=== PATIENT | male | born 1955 | race Caucasian/White ===

== ENCOUNTER 2016-10-01 15:27 | Outpatient (CLI) | payer OTHER ==
[~2016-10-01] VITALS: Ht 172.7 cm; Wt 68.6 kg
[2016-10-01 15:50] VITALS: Ht 172.7 cm; Wt 68.6 kg
[2016-10-01] MEDS ORDERED: OXYC-279 PO (15:50)
[2016-10-01] MEDS ORDERED: SENN-53 PO (15:50)
[2016-10-01] MEDS ORDERED: WARF1TAB47 PO (15:50)
[2016-10-01 15:51] VITALS: BP 118/70; PULSE 132; RESP 18
--- NOTE | 2016-10-01 16:13 | PN ---
Date/Time of Note Date/Time of Note DATE: 10/01/16 TIME: 16:05 Outpatient Progress Note Chief Complaint Urosepsis/anemia/cancer of the bladder/urinary diversion/left leg phlebitis/ HPI Urosepsis/no fever or chills, no back pain, patient still on antibiotic, Anemia/no hematemesis of melena, Cancer of the bladder/patient has a cancer of the bladder, no suprapubic discomfort or distention, Urinary diversion/patient has urinary diversion, no blood in the urine, Left leg phlebitis/patient has left leg phlebitis, patient on Coumadin, Review of Systems Const: [No Fever, no chills, no Wt. loss, no Fatigue, normal appetite, no diaphoresis.] Eyes: [No pain, no discharge, no redness, no visual change, no foreign body.] ENT: [No pain, no bleeding, no congestion, no sore throat, no dysphagia, no discharge or rhinitis.] Lymph: [No adenopathy, no tender nodes, no lymphedema.] Resp: [No SOB, no cough, no sputum, no wheezing, no chest pain.] CV: [No chest pain, no palpitaions, no VALLE, no PND, no edema.] GI: [Normal appetite, no pain, no nausea, no vomiting, no diarrhea, no blood, no constipation.] : [No frequency, no urgency, no dysuria, no hematuria, no flank pain, no discharge, no bleeding patient has urinary diversion,.] Musc: [No bone/joint pain, no back pain, no neck pain, no knee pain, no restricted ROM.] Skin: [No rash, no skin lesions, no erythema, no laceration, no bruising, no pruritus.] Neuro: [No JAQUEZ, no dizziness, no syncope, no seizure, no focal-weakness.] Endo: [No polyuria, no polydypsia, no dry-skin, no temp-intolerance.] Psych: [No hallucinations, no depression, no anxiety, no suicidal ideation.] Ext: [No edema, no pain, no ulcer, no weakness left leg phlebitis, minimal discomfort,.] Physical Exam Vital Signs Date Time Temp Pulse Resp B/P Pulse Ox O2 Delivery O2 Flow Rate FiO2 10/01/16 15:51 99.8 132 18 118/70 96 Room Air General Appearance: A [61 year-old [male [who appears well-developed, well- nourished, in no acute distress.] HEENT: [Head normocephalic, atraumatic. Pupils equal, round, reactive to light and accommodate. Sclerae are no jaundice. Nasal turbinates pink without erythema or nasal discharge. Mucous membranes pink and moist without lesions. Oropharynx clear without any exudate or discharge.] NECK: [Supple. Trachea midline, No thyromegaly, No cervical lymphadenopathy, No mass, No carotid bruits, No JVD, Carotid pulses 2+ bilaterally.] PULMONARY: [Clear to auscultaion bilaterally, No retractions, Chest expansion symmetric bilaterally, no rales, no ronchi, no dulness on percussion.] CARDIAC: [Normal SI and S2, Regular rate and rythm, no murmur, gallop, or rub.] GASTROINTESTINAL: [Abdomen is soft, non-tender, Non Rigid, No distention, Positive bowel sounds x4 quadrants, Liver normal.] SKIN: [Warm, dry, no rash, no bruise, no echmosis.] EXTREMITIES: [Bilateral lower extremities normal, no edema, pulse palpable, no contracture left leg phlebitis,.] MUSCULOSKELETAL: [Spine Normal, Non-tender, Normal range of motion, No swelling , no deformity, no clubbing, or cyanosis, the patient has no edema to bilateral lower extremities, dorsalis pedis pulses palpable bilaterally.] NEUROLOGIC: [The patient is awake, alert, oriented, responding to yes/no questions appropriately, moving all extremities, cranial nerve intact, normal strenght, normal power, normal coordination, normal gait.] Allergies Coded Allergies: No Known Drug Allergies (Verified Allergy, Unknown, 10/01/16) PMH Alcohol abuse/smoking tobacco/urosepsis/anemia/atherosclerosis of aorta/cancer immunotherapy/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/radical cystectomy/uterine diversion/chronic pain/malnutrition/ Social Hx Patient does smoke and drinks, Family Hx Noncontributory Assessment/Plan Impression Urosepsis/anemia/cancer of the bladder/urinary diversion/left leg phlebitis Plan Patient education done, patient is low-grade fever, patient still on antibiotic, CBC CMP, PT/INR after the patient finishes antibiotic, Patient to follow with the primary care physician, If any question to call us or call primary care physician, discussed with the family, if any fever to call us immediately Patient has all the medication, Medications Home Meds Reported Medications Warfarin Sodium* (Coumadin*) 1 Mg Tablet, 1 MG PO DAILY, TAB 10/01/16 Sennosides* (Senna Lax*) 8.6 Mg Tablet, 1 TAB PO DAILY, TAB 10/01/16 Oxycodone HCl/Acetaminophen (Percocet 5-325 mg Tablet) 1 Each Tablet, 1 EACH PO Q6 Y for PAIN LEVEL 6-10, TAB 10/01/16 SHEYLA SCHWAB MD Oct 01, 2016 16:12
== END 2016-10-01 16:30 | disposition home or self-care (01) ==
LOC: DCC 15:27
PROVIDERS: ATTEND Internal Medicine
DX: A41.9 Sepsis, unspecified organism (principal); D64.9 Anemia, unspecified; C67.9 Malignant neoplasm of bladder, unspecified; I80.9 Phlebitis and thrombophlebitis of unspecified site

== ENCOUNTER 2016-10-16 14:06 | Outpatient (CLI) | payer OTHER ==
[~2016-10-16] VITALS: Ht 172.7 cm; Wt 65.7 kg
[~2016-10-16 14:06] MED LIST: OXYC-279 PO; SENN-53 PO; WARF1TAB47 PO
[2016-10-16 14:13] VITALS: BP 105/62; PULSE 134; RESP 18; Ht 172.7 cm; Wt 65.7 kg
[2016-10-16 14:18] VITALS: PULSE 124
--- NOTE | 2016-10-16 14:37 | PN ---
Date/Time of Note Date/Time of Note DATE: 10/16/16 TIME: 14:32 Outpatient Progress Note Chief Complaint Urosepsis/anemia/Ca bladder/sinus tachycardia/urinary divergence/left leg phlebitis HPI Urosepsis/low-grade fevers and patient had chill, patient was recently hospitalized, patient feeling fine at present, no cloudy urine, no blood in the urine, Anemia/no ecchymosis or bruises or bleeding, no ecchymosis, no fatigue, CA bladder/patient has severe bladder, has recent surgery, no blood in the urine , recovering well, Sinus tachycardia/patient has sinus tachycardia, no chest pain or palpitations or syncope, Urinary diversion/patient has urinary diversion, no blood in the urine, Left leg phlebitis/patient has left leg phlebitis, patient on Coumadin, Review of Systems Const: [No Fever, no chills, no Wt. loss, no Fatigue, normal appetite, no diaphoresis.] Eyes: [No pain, no discharge, no redness, no visual change, no foreign body.] ENT: [No pain, no bleeding, no congestion, no sore throat, no dysphagia, no discharge or rhinitis.] Lymph: [No adenopathy, no tender nodes, no lymphedema.] Resp: [No SOB, no cough, no sputum, no wheezing, no chest pain.] CV: [No chest pain, no palpitaions, no VALLE, no PND, no edema.] GI: [Normal appetite, no pain, no nausea, no vomiting, no diarrhea, no blood, no constipation.] : [No frequency, no urgency, no dysuria, no hematuria, no flank pain, no discharge, no bleeding patient has urinary divergent,.] Musc: [No bone/joint pain, no back pain, no neck pain, no knee pain, no restricted ROM.] Skin: [No rash, no skin lesions, no erythema, no laceration, no bruising, no pruritus.] Neuro: [No JAQUEZ, no dizziness, no syncope, no seizure, no focal-weakness.] Endo: [No polyuria, no polydypsia, no dry-skin, no temp-intolerance.] Psych: [No hallucinations, no depression, no anxiety, no suicidal ideation.] Ext: [No edema, no pain, no ulcer, history of left leg phlebitis, no weakness.] Physical Exam General Appearance: A [61] year-old [male [who appears well-developed, well- nourished, in no acute distress.] HEENT: [Head normocephalic, atraumatic. Pupils equal, round, reactive to light and accommodate. Sclerae are no jaundice. Nasal turbinates pink without erythema or nasal discharge. Mucous membranes pink and moist without lesions. Oropharynx clear without any exudate or discharge.] NECK: [Supple. Trachea midline, No thyromegaly, No cervical lymphadenopathy, No mass, No carotid bruits, No JVD, Carotid pulses 2+ bilaterally.] PULMONARY: [Clear to auscultaion bilaterally, No retractions, Chest expansion symmetric bilaterally, no rales, no ronchi, no dulness on percussion.] CARDIAC: [Normal SI and S2, Regular rate and rythm, no murmur, gallop, or rub.] GASTROINTESTINAL: [Abdomen is soft, non-tender, Non Rigid, No distention, Positive bowel sounds x4 quadrants, Liver normal. Patient has urinary diversion, ] SKIN: [Warm, dry, no rash, no bruise, no echmosis.] EXTREMITIES: [Bilateral lower extremities no edema, left leg phlabitus, pulse palpable, no contracture.] MUSCULOSKELETAL: [Spine Normal, Non-tender, Normal range of motion, No swelling , no deformity, no clubbing, or cyanosis, the patient has no edema to bilateral lower extremities, dorsalis pedis pulses palpable bilaterally.] NEUROLOGIC: [The patient is awake, alert, oriented, responding to yes/no questions appropriately, moving all extremities, cranial nerve intact, normal strenght, normal power, normal coordination, normal gait.] Allergies Coded Allergies: No Known Drug Allergies (Verified Allergy, Unknown, 10/01/16) PMH No change Social Hx No change Family Hx No change Assessment/Plan Impression Urosepsis resolving/anemia/CA bladder/sinus tachycardia/urinary diversion/left leg phlebitis Plan Patient feeling fine, patient admitted with fever yesterday, 100.5 at home and had slight chill, at present patient for comfortable, Patient forgot to get a blood test drawn and the will send him today, Patient encouraged to follow with the primary care physician, Patient had fever and chill, patient may need admission, will send for the lab and wait for the results, Patient family told if the heart rate remains elevated to call us, patient may end up in a hospital, high risk for repeated admission, Medications Home Meds Reported Medications Warfarin Sodium* (Coumadin*) 1 Mg Tablet, 1 MG PO DAILY, TAB 10/01/16 Sennosides* (Senna Lax*) 8.6 Mg Tablet, 1 TAB PO DAILY, TAB 10/01/16 Oxycodone HCl/Acetaminophen (Percocet 5-325 mg Tablet) 1 Each Tablet, 1 EACH PO Q6 Y for PAIN LEVEL 6-10, TAB 10/01/16 SHEYLA SCHWAB MD Oct 16, 2016 14:37
== END 2016-10-16 16:44 | disposition home or self-care (01) ==
LOC: DCC 14:06
PROVIDERS: ATTEND Internal Medicine
DX: C67.9 Malignant neoplasm of bladder, unspecified (principal); D64.9 Anemia, unspecified; R00.0 Tachycardia, unspecified; I80.3 Phlebitis and thrombophlebitis of lower extremities, unspecified

== ENCOUNTER 2016-10-23 14:22 | Outpatient (CLI) | payer OTHER ==
[~2016-10-23] VITALS: Ht 172.7 cm; Wt 64.1 kg
[2016-10-23 14:54] VITALS: BP 119/63; PULSE 120; RESP 20; Ht 172.7 cm; Wt 64.1 kg
--- NOTE | 2016-10-23 15:47 | PN ---
Date/Time of Note Date/Time of Note DATE: 10/23/16 TIME: 15:41 Outpatient Progress Note Chief Complaint Sepsis/CA bladder/anemia/phlebitis/elevated PT/INR HPI Sepsis/patient has 103.5 temperature, and had chills, patient was advised to go to the hospital few days ago, patient refused to go, patient feel weakness and tiredness, patient has a cloudy urine, See a bladder/patient has severe bladder, no hematuria, patient has urinary diversion, very cloudy urine, Anemia/generalized weakness, no ecchymoses bruises or bleeding, Phlebitis/patient has history of phlebitis, patient on Coumadin, patient INR was elevated, Elevated INR/no hematuria, no rectal bleeding, no bruises, Review of Systems Const: 103.5 fever, with chills, no Wt. loss, slight fatigue, normal appetite, no diaphoresis. Eyes: No pain, no discharge, no redness, no visual change, no foreign body. ENT: No pain, no bleeding, no congestion, no sore throat, no dysphagia, no discharge or rhinitis. Lymph: No adenopathy, no tender nodes, no lymphedema. Resp: No SOB, no cough, no sputum, no wheezing, no chest pain. CV: No chest pain, no palpitaions, no VALLE, no PND, no edema. GI: Normal appetite, no pain, no nausea, no vomiting, no diarrhea, no blood, no constipation. : No frequency, no urgency, no dysuria, no hematuria, no flank pain, no discharge, no bleeding. Patient has urinary diversion, and cloudy urine, Musc: No bone/joint pain, no back pain, no neck pain, no knee pain, no restricted ROM. Skin: No rash, no skin lesions, no erythema, no laceration, no bruising, no pruritus. Neuro: No JAQUEZ, no dizziness, no syncope, no seizure, no focal-weakness. Endo: No polyuria, no polydypsia, no dry-skin, no temp-intolerance. Psych: No hallucinations, no depression, no anxiety, no suicidal ideation. Ext: No edema, no pain, no ulcer, no weakness. Physical Exam General Appearance: A 61 year-old Gmale who appears well-developed, well- nourished, in no acute distress. HEENT: Head normocephalic, atraumatic. Pupils equal, round, reactive to light and accommodate. Sclerae are no jaundice. Nasal turbinates pink without erythema or nasal discharge. Mucous membranes pink and moist without lesions. Oropharynx clear without any exudate or discharge. NECK: Supple. Trachea midline, No thyromegaly, No cervical lymphadenopathy, No mass, No carotid bruits, No JVD, Carotid pulses 2+ bilaterally. PULMONARY: Clear to auscultaion bilaterally, No retractions, Chest expansion symmetric bilaterally, no rales, no ronchi, no dulness on percussion. CARDIAC: Normal SI and S2, Regular rate and rythm, no murmur, gallop, or rub. GASTROINTESTINAL: Abdomen is soft, non-tender, Non Rigid, No distention, Positive bowel sounds x4 quadrants, Liver normal patient has urinary diversion, patient has a back in the abdominal wall, with the cloudy urine,. SKIN: Warm, dry, no rash, no bruise, no echmosis. EXTREMITIES: Bilateral lower extremities normal, no edema, no phlabitus, pulse palpable, no contracture. MUSCULOSKELETAL: Spine Normal, Non-tender, Normal range of motion, No swelling, no deformity, no clubbing, or cyanosis, the patient has no edema to bilateral lower extremities, dorsalis pedis pulses palpable bilaterally. NEUROLOGIC: The patient is awake, alert, oriented, responding to yes/no questions appropriately, moving all extremities, cranial nerve intact, normal strenght, normal power, normal coordination, normal gait. Allergies Coded Allergies: No Known Drug Allergies (Verified Allergy, Unknown, 10/01/16) PMH Sepsis/CA bladder/anemia/phlebitis/sinus tachycardia/urinary diversion Social Hx No change Family Hx No change Assessment/Plan Impression Sepsis/leukocytosis/CA bladder/anemia/phlebitis/elevated PT/INR] coagulopathy Plan Patient was advised to go to the hospital a few days ago, patient refused to go , patient agrees today to go to the hospital, patient is given the record, patient W BC count was 26,000, patient has a very cloudy urine, most likely patient has urosepsis, Patient education done, [facility], Patient education done about sepsis leading to , Medications Home Meds Reported Medications Warfarin Sodium* (Coumadin*) 1 Mg Tablet, 1 MG PO DAILY, TAB 10/01/16 Sennosides* (Senna Lax*) 8.6 Mg Tablet, 1 TAB PO DAILY, TAB 10/01/16 Oxycodone HCl/Acetaminophen (Percocet 5-325 mg Tablet) 1 Each Tablet, 1 EACH PO Q6 Y for PAIN LEVEL 6-10, TAB 10/01/16 SHEYLA SCHWAB MD Oct 23, 2016 15:47
== END 2016-10-23 16:36 | disposition home or self-care (01) ==
LOC: DCC 14:22
PROVIDERS: ATTEND Internal Medicine
DX: C67.9 Malignant neoplasm of bladder, unspecified (principal); D64.9 Anemia, unspecified; A41.9 Sepsis, unspecified organism; I80.9 Phlebitis and thrombophlebitis of unspecified site